=== PATIENT | male | born 1950 | race Caucasian/White ===

== ENCOUNTER → 2020-01-09 | Outpatient (CLI) | payer OTHER, BC | LOC: HYPER 10:00 | DX: L89.313 Pressure ulcer of right buttock, stage 3 (principal); L89.321 Pressure ulcer of left buttock, stage 1; E78.5 Hyperlipidemia, unspecified; G47.00 Insomnia, unspecified; M19.90 Unspecified osteoarthritis, unspecified site; Z90.49 Acquired absence of other specified parts of digestive tract; Z85.038 Personal history of other malignant neoplasm of large intestine; Z79.82 Long term (current) use of aspirin ==

== ENCOUNTER → 2020-01-30 | Outpatient (CLI) | payer OTHER, BC | LOC: HYPER 09:55 | DX: L89.313 Pressure ulcer of right buttock, stage 3 (principal); L89.321 Pressure ulcer of left buttock, stage 1; E78.5 Hyperlipidemia, unspecified; G47.00 Insomnia, unspecified; M19.90 Unspecified osteoarthritis, unspecified site; Z79.82 Long term (current) use of aspirin; Z85.038 Personal history of other malignant neoplasm of large intestine; Z86.14 Personal history of Methicillin resistant Staphylococcus aureus infection ==

== ENCOUNTER → 2020-02-27 | Outpatient (CLI) | payer OTHER, BC | LOC: HYPER 10:15 | DX: L89.313 Pressure ulcer of right buttock, stage 3 (principal); L89.321 Pressure ulcer of left buttock, stage 1; E78.5 Hyperlipidemia, unspecified; E66.01 Morbid (severe) obesity due to excess calories; G47.00 Insomnia, unspecified; M19.90 Unspecified osteoarthritis, unspecified site; Z85.038 Personal history of other malignant neoplasm of large intestine; Z68.27 Body mass index [BMI] 27.0-27.9, adult ==

== ENCOUNTER → 2020-03-26 | Outpatient (CLI) | payer OTHER, BC | LOC: HYPER 10:08 | DX: L89.313 Pressure ulcer of right buttock, stage 3 (principal); L89.321 Pressure ulcer of left buttock, stage 1; E78.5 Hyperlipidemia, unspecified; M19.90 Unspecified osteoarthritis, unspecified site; G47.00 Insomnia, unspecified; Z86.14 Personal history of Methicillin resistant Staphylococcus aureus infection; Z85.038 Personal history of other malignant neoplasm of large intestine; Z79.82 Long term (current) use of aspirin ==

== ENCOUNTER → 2020-04-23 | Outpatient (CLI) | payer OTHER, BC | LOC: HYPER 10:01 | PROVIDERS: ATTEND Emergency Medicine | DX: L89.313 Pressure ulcer of right buttock, stage 3 (principal); L89.321 Pressure ulcer of left buttock, stage 1; E78.5 Hyperlipidemia, unspecified; E66.01 Morbid (severe) obesity due to excess calories; G47.00 Insomnia, unspecified; M19.90 Unspecified osteoarthritis, unspecified site; Z85.038 Personal history of other malignant neoplasm of large intestine; Z68.27 Body mass index [BMI] 27.0-27.9, adult ==

== ENCOUNTER → 2020-05-21 | Outpatient (CLI) | payer OTHER, BC | LOC: HYPER 07:10 | PROVIDERS: ATTEND Emergency Medicine Emergency Medical Services | DX: L89.313 Pressure ulcer of right buttock, stage 3 (principal); L89.321 Pressure ulcer of left buttock, stage 1; E78.5 Hyperlipidemia, unspecified; M19.90 Unspecified osteoarthritis, unspecified site; G47.00 Insomnia, unspecified; Z85.038 Personal history of other malignant neoplasm of large intestine; Z86.14 Personal history of Methicillin resistant Staphylococcus aureus infection; Z79.82 Long term (current) use of aspirin ==

== ENCOUNTER → 2020-06-22 | Outpatient (CLI) | payer OTHER, BC | LOC: HYPER 10:06 | PROVIDERS: ATTEND Emergency Medicine Emergency Medical Services | DX: L89.313 Pressure ulcer of right buttock, stage 3 (principal); L89.321 Pressure ulcer of left buttock, stage 1; E78.5 Hyperlipidemia, unspecified; M19.90 Unspecified osteoarthritis, unspecified site; G47.00 Insomnia, unspecified; Z85.038 Personal history of other malignant neoplasm of large intestine; Z86.14 Personal history of Methicillin resistant Staphylococcus aureus infection; Z79.82 Long term (current) use of aspirin ==

== ENCOUNTER → 2020-07-20 | Outpatient (CLI) | payer OTHER, BC | LOC: HYPER 10:01 | PROVIDERS: ATTEND Emergency Medicine | DX: L89.321 Pressure ulcer of left buttock, stage 1 (principal); L89.313 Pressure ulcer of right buttock, stage 3; E78.5 Hyperlipidemia, unspecified; G47.00 Insomnia, unspecified; M19.90 Unspecified osteoarthritis, unspecified site; Z85.038 Personal history of other malignant neoplasm of large intestine ==

== ENCOUNTER → 2020-08-31 | Outpatient (CLI) | payer OTHER, BC | LOC: HYPER 09:47 | PROVIDERS: ATTEND Emergency Medicine Emergency Medical Services | DX: T81.89XD Other complications of procedures, not elsewhere classified, subsequent encounter (principal); L89.313 Pressure ulcer of right buttock, stage 3; L89.321 Pressure ulcer of left buttock, stage 1; E78.5 Hyperlipidemia, unspecified; M19.90 Unspecified osteoarthritis, unspecified site; G47.00 Insomnia, unspecified; Z85.038 Personal history of other malignant neoplasm of large intestine; Z86.14 Personal history of Methicillin resistant Staphylococcus aureus infection; Z79.82 Long term (current) use of aspirin; Y83.8 Other surgical procedures as the cause of abnormal reaction of the patient, or of later complication, without mention of misadventure at the time of the procedure ==

== ENCOUNTER 2021-01-01 11:25 | Emergency (ER) | payer OTHER, BC ==
[~2021-01-01] VITALS: Ht 172.7 cm; Wt 77.1 kg
--- NOTE | ~2021-01-01 | EMS ---
[address] [address] EMS Patient Care Report Name: WANDA MITCHELL Room #: PRE M.RReinier#: [id number] Admission: Attend Phys: Discharge: Date of : 50 Report #: [id number] THIS REPORT FOR: //name// Report Transmitted: 01/01/2021 11:24 EMS Care Summary [place], [place]/[facility] Incident [id number] @ 01/01/2021 10:43 Incident Location [address] [place] [address] Patient WANDA Kelly MITCHELL Male, 70 Years 1950 Patient Address [address] [place] [address] Patient History Hyperlipidemia, Patient Allergies No known allergies, Patient Medications Atorvastatin, Multivitamin, Chief Complaint DIZZINESS AND DISORIENTATION Disposition Transported No Lights/[place] Dispatch Reason Stroke/CVA Transported To [facility] Narrative S: 70 Y/O MALE FOUND AMBULATORY AT HOME C/O DIZZINESS, UNSTEADINESS ON HIS FEET, MILD DISORIENTATION, AND NAUSEA WITH VOMITING SINCE YESTERDAY. HE DENIES HEADACHE, CHEST PAIN, SHORTNESS OF BREATH, OR DIAPHORESIS. HE STATES HE HAS A NEW ONSET OF TREMORS AND ALSO STATES HIS VISION IS ALTERED[place] [address] EMS Patient Care Report Name: WANDA MITCHELL Room #: PRE Gian#: [id number] Admission: Attend Phys: Discharge: Date of : 50 Report #: [id number] SENTENCES BETWEEN BREATHS WITHOUT DIFFICULTY. HE ALSO DENIES GENERAL OR FOCAL WEAKNESS. O: SEE ASSESSMENT SECTION. A: VERTIGO, NAUSEA AND VOMITING, R/O CARDIAC ABNORMALITY. P: SEE FLOW CHART SECTION. Initial Vitals @11:03P: 54,R: 20,BP: 142/83,Pain: 0/10,GCS: 15,Glucose: 164,SpO2: 97,Revised Trauma: 12,OH Suspected: false @11:21P: 54,R: 20,BP: 140/64,Pain: 0/10,GCS: 15,CO: 1,SpO2: 95,Revised Trauma: 12,OH Suspected: false @10:57P: 73,R: 20,BP: 171/83,Pain: 0/10,GCS: 15,CO: 0,SpO2: 94,Revised Trauma: 12, Assessments @10:50MENTAL:Person Oriented,Time Oriented,Event Oriented,Place Oriented,SKIN:HEENT:Eyes: Left Pupil: 4-mm,Eyes: Right Pupil: 4-mm,LUNG SOUNDS:General: Vomiting,General: Nausea,ABDOMEN:General: Vomiting,General: Nausea,PELVIS//GI:EXTREMITIES:Capillary Refill: Right Upper: < 2 Sec,PULSE:Radial: 2+ Normal,NEURO:Tremors, Impression Vomiting Procedures @11:02Zofran - 4 Milligrams (mg) - Intravenous (IV)Response: Improved@10:583-Lead ECGResponse: UnchangedSucceeded@11:0712-Lead ECGResponse: UnchangedSucceeded@11:0112-Lead ECGResponse: UnchangedSucceeded@11:0512-Lead ECGResponse: UnchangedSucceeded@10:58Saline Lock 10cc (18 ga) Site: Antecubital-LeftResponse: UnchangedSucceeded@10:53General CommentsResponse: Unchanged@10:50ALS AssessmentResponse: UnchangedSucceeded@10:55StretcherResponse: Unchanged Timeline 10:42,Call Received 10:42,Dispatch Notified 10:43,Dispatched 10:44,En Route 10:49,On Scene 10:50,At Patient 10:50,ALS Assessment,Response: UnchangedSucceeded, 10:53,General Comments,Response: Unchanged 10:55,Stretcher,Response: Unchanged [facility] [address] [place] [address] EMS Patient Care Report Name: WANDA MITCHELL Room #: PRE ER M.R.#: [id number] Admission: Attend Phys: Discharge: Date of : 50 Report #: [id number] 10:57,BP: 171/83 M,PULSE: 73,RR: 20 R,SPO2: 94 Ox,ETCO2: ,BG: ,PAIN: 0,GCS: 15, 10:58,3-Lead ECG,Response: UnchangedSucceeded, 10:58,Saline Lock 10cc 18 ga Site: Antecubital-Left,Response: UnchangedSucceeded, 11:01,12-Lead ECG,Response: UnchangedSucceeded, 11:02,Zofran - 4 Milligrams (mg) - Intravenous (IV),Response: Improved 11:03,BP: 142/83 M,PULSE: 54,RR: 20 R,SPO2: 97 Ox,ETCO2: ,B,PAIN: 0,GCS: 15, 11:05,12-Lead ECG,Response: UnchangedSucceeded, 11:07,12-Lead ECG,Response: UnchangedSucceeded, 11:11,Depart Scene 11:21,BP: 140/64 M,PULSE: 54,RR: 20 R,SPO2: 95 Ox,ETCO2: ,BG: ,PAIN: 0,GCS: 15, 11:22,At Destination 11:40,Call Closed Disclaimer v1.1 Copyright 2020 [employer] This EMS Care Summary contains data elements from the applicable legal record (which may be displayed differently). It is designed to provide pertinent information for the following purposes: continuity of care, clinical quality, and state data reporting. The complete legal record is available to ED staff and administrators of the receiving hospital in [employer] Patient Tracker. All data is provided "as is."
[2021-01-01 11:50] LABS: ABSOLUTE NEUTROPHILS 5.7 thou/uL (1.4-8.2); BASOPHILS 0.4 % (0.0-2.0); EOSINOPHILS 0.6 % (0.0-3.0); HEMATOCRIT 40.2 % (42.0-52.0); HEMOGLOBIN 12.9 gm/dL (14.0-18.0); LYMPHOCYTES 7.7 % (24.0-44.0); MCH 29.8 pg (26.0-34.0); MCV 93.1 fL (80.0-100.0); MONOCYTES 3.8 % (1.0-8.0); PLATELET COUNT 223 thou/uL (150-400); POLYS 87.5 % (36.0-66.0); RBC 4.32 mil/uL (4.50-6.00); RDW 17.1 % (10.5-14.5); WBC 6.5 thou/uL (4.0-11.0)
[2021-01-01 11:59] LABS: ANION GAP 10 mmol/L (7-16); BUN 21 mg/dL (7-18); CALCIUM 9.9 mg/dL (8.5-10.1); CHLORIDE 104 mmol/L (98-107); CO2 29 mmol/L (21-32); GLUCOSE 147 mg/dL (74-106); POTASSIUM 3.6 mmol/L (3.5-5.1); SODIUM 143 mmol/L (136-145)
[2021-01-01 12:09] LABS: TROPONIN-I <0.06 ng/mL (<0.06)
--- NOTE | 2021-01-01 12:45 | EKG ---
[address] [employer] [place] [address] ELECTROCARDIOGRAM REPORT Name: WANDA MITCHELL Room #: REG MARCELO Springer#: [id number] Admission: 01/01/21 Attend Phys: Discharge: Date of : 50 Report #: [id number] [facility] ED Test Date: 2021-01-01 Test Time: 11:33:31 Pat Name: WANDA MITCHELL Department: Room: Gender: M Volunteer Firefighter: ANGELICA : 1950 Requested By: Gavino Epps Order Number: [id number] MD: Shahzad Avelar Measurements Intervals [place] Rate: 52 P: 55 IN: 160 QRS: 33 QRSD: 104 T: 31 QT: 457 QTc: 425 Interpretive Statements Sinus rhythm No previous ECG available for comparison Electronically Signed On 01-01-2021 12:45:17 [employer] by Shahzad Avelar [email or web address] <ELECTRONICALLY SIGNED> By: Shahzad Avelar MD, [facility] 01/01/21 1245 1133 1133 Shahzad Avelar MD, FACC /EPI
[2021-01-01 13:33] LABS: URINE BILIRUBIN NEGATIVE (Negative); URINE BLOOD TRACE (Negative); URINE CLARITY SL CLOUDY; URINE COLOR YELLOW; URINE GLUCOSE-RANDOM* NEGATIVE (Negative); URINE KETONES NEGATIVE (Negative); URINE LEUKOCYTES-REFLEX NEGATIVE (Negative); URINE NITRITE-REFLEX NEGATIVE (Negative); URINE PROTEIN (DIPSTICK) NEGATIVE (Negative); URINE SPECIFIC GRAVITY >= 1.030 (1.005-1.035); URINE UROBILINOGEN 0.2 E.U./dl (0.2-1.0)
[2021-01-01] MEDS ORDERED: PROTONIX40 M2 PO (13:38)
[2021-01-01] MEDS ORDERED: LIPITOR 40 MG T40 M1 PO (13:38)
[2021-01-01] MEDS ORDERED: TAMSULOSIN HCL0.4 MG PO (13:38)
[2021-01-01] MEDS ORDERED: VALIUM2 MG PO (14:07)
[2021-01-01 15:02] VITALS: BP 135/72
== END 2021-01-01 15:01 | disposition home or self-care (01) ==
LOC: ER 11:25
PROVIDERS: Nurse Practitioner
DX: R42 Dizziness and giddiness (principal); E78.5 Hyperlipidemia, unspecified; Z79.899 Other long term (current) drug therapy